=== PATIENT | male | born 1995 ===

== ENCOUNTER 2024-07-09 11:09 | Outpatient (REF) | payer OTHER, SELFPAY ==
--- OUTSIDE RECORDS SUMMARY | 2024-07-09 11:11 | XMS_ITS | Patient Health Record ---
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 Name Role Phone Humberto Mcgarry Primary Care Provider [phone] Jessica Unavailable [phone] Humberto Mcgarry DO Unavailable Unavailable Reason For Referral No Information Medications Medication SIG (Take, Route, Frequency, Duration) Notes Start Date End Date Status ZyrTEC 5 mg 1 tab(s) chewed once a day Active Multivitamin 1 tablet Orally Once a day Active Immunizations Vaccine Route Administration Date Status Comme nts Declined Flu Shot Unknown 07/23/2019 [place] [address] FFS Unknown 02/13/1996 [place] [address] FFS Unknown 04/20/1996 [place] [address] FFS Unknown 07/06/1996 [place] [address] FFS Unknown 06/14/1997 [place] [address] FFS Unknown 01/31/2000 Administered Hepatitis B Adult I Unknown 1995 Administered Hepatitis B Adult I Unknown 01/11/1996 Administered Hepatitis B Adult I Unknown 10/05/1996 Administered HIB 48258 Unknown 02/13/1996 Administered HIB 45753 Unknown 07/06/1996 Administered HIB 32530 Unknown 03/15/1997 Administered Menactral(MCV4) Unknown 01/20/2007 Administered Meningococcal Conjugate 50194 IM Intramuscular 09/10/2014 Administered MMR Unknown 03/15/1997 Administered MMR Unknown 01/31/2000 Administered Polio IPV SC Inactivated Unknown 02/13/1996 Administere d Polio IPV SC Inactivated Unknown 04/20/1996 Administere d Polio IPV SC Inactivated Unknown 07/06/1996 Administere d Polio IPV SC Inactivated Unknown 06/14/1997 Administere d Polio IPV SC Inactivated Unknown 03/24/2000 Administere d Tdap Unknown 01/20/2006 Administered Tdap IM Intramuscular 08/29/2012 Administered (MV) Varicella Unknown 03/24/2000 Administered Varicella Unknown 01/20/2007 Administered Social History Alcohol Screen Question Answer Notes Did you have a drink contain ing alcohol in the past year? Yes How often did you have a dri nk containing alcohol in the past year? 2 to 4 times a month (2 points) How many drinks did you have on a typical day when you were drinking in the past year? 1 or 2 drinks (0 point) How often did you have 6 or more drinks on one occasion in the past year? Never (0 point) Points 2 Interpretation Negative Tobacco use other than smoking: Question Answer Notes Are you an other tobacco user? No Problems Problem Type SNOMED Code ICD Code Onset Dates Problem Status W/U Status Risk Notes Problem Enuresis (5096647) Enuresis (307.6) Active confirmed (MV) Problem 66630915 Constipation (K59.00) Active confirmed Plan Of Treatment Pending Test Test Name Order Date CMP/HEPATIC([facility]) 07/23/2019 LDL (Direct)([facility]) 07/23/2019 TSH([facility]) 07/23/2019 CBC with Differential (AUTO) 07/23/2019 Insurance Providers Payer Name Payer Address Payer Phone Subscriber Number Group Number Insured Name Patient Relationship to Insured Coverage Start Date Coverage End Date [employer] [place] [address] [place] [address] [phone] [id number] ROSANNA ROBLES Child - Insured does not have Financial Responsibility (includes legally adopted child) 3 Medical (General) History Medical History History ICD Code Seasonal Allergies Surgical History Surgery Date(Month/Year) Tonillectomy & Adnoidectomy 1999
--- OUTSIDE RECORDS SUMMARY | 2024-07-09 11:11 | XMS_ITS | Data Portability ---
Author Organization [facility] Address [address] [place] [address] Care Team Providers Care Tobacco Drummer Name Role Phone ALVAREZ CALDERON Primary Care Provider [phone] ALVAREZ CALDERON Referring Provider JUAN C PORTILLO Orthopedic Surgeon Assessment Encounter Date Assessment Date Assessment LastModified by Organization Details LastModified Time 06/06/2017 06/06/2017 Xrays personally reviewed today taken @ [facility]: Left Knee Normal Recommendatio ns: Anterior knee pain. Continue activity as tolerated. Recommend stretching and core and quadriceps strengthening . If worsening possible referral to physical therapy Follow Up Visit: PRN [email or web address] Not available 06/06/2017 11:00:10 Plan of Treatment Reminders Order Date Submit Date Provider Last Modified By Organization Details Last Modified Time Details Appointments None recorded . Lab CMP, serum or plasma 021 07/23/19 21 [email or web address] Not available 2 06:44:43 CBC w/ auto diff 021 07/23/19 21 [email or web address] Not available 2 06:44:43 TSH, serum or plasma 021 07/23/19 21 [email or web address] Not available 2 06:44:44 lipid panel, serum 021 07/23/19 21 [email or web address] Not available 2 06:44:44 CBC w/ auto diff 022 07/27/19 22 JOSH Not available 2 11:25:05 TSH, serum or plasma 022 07/27/19 JOSH Not available 12:31:55 CMP, serum or plasma 022 07/27/19 JOSH Not available 12:37:08 lipid panel, serum 022 07/27/19 22 JOSH Not available 12:38:36 Referral None recorded . Procedures None recorded . Surgeries None recorded . Imaging XR, knee, 3 view - 3 V WB 017 06/06/20 17 JOSH Not available 7 16:23:17 Medication Orders None recorded . Patient TargetsNo targets recorded. Patient Instructions Encounter Date Encounter Id Patient Instructions Last Modified By Organization Details Last Modified Time 07/23/2020 [id number] seasonal allergies: care instructions Not available 07/23/2020 12:28:27 07/27/2021 [id number] seasonal allergies: care instructions Not available 07/27/2021 09:17:29 Reason for Referral None Reported. Results Created Date Observation Date Name Description Value Unit Range Abnormal Flag Note LastModifiedBy Organization Detail LastModifiedTime 07/27/19 22 07/27/2021 CBCD WBC 8.0 10^3_ cells /uL 4.8-11 .2 Not Available [facility] [address], [place], [address], 07/27/2021 11:25:05 07/27/19 22 07/27/2021 CBCD RBC 5.1 10^6_ cells /uL 4.0-5. 9 Not Available [facility] [address], [place], [address], 07/27/2021 11:25:05 07/27/19 22 07/27/2021 CBCD HGB 16.2 g/dL 14.0-1 7.2 Not Available [facility] [address], [place], [address], 07/27/2021 11:25:05 07/27/19 22 07/27/2021 CBCD HCT 46.9 % 40.0-5 2.0 Not Available [facility] [address] [facility], [place], [address], 07/27/2021 11:25:05 07/27/19 22 07/27/2021 CBCD MCV 92.0 fL 82.0-9 8.0 Not Available [facility] [address] [facility], [place], [address], 07/27/2021 11:25:05 07/27/19 22 07/27/2021 CBCD MCH 31.8 pg 27.0-3 5.0 Not Available [facility] [address] [facility], [place], [address], 07/27/2021 11:25:05 07/27/19 22 07/27/2021 CBCD MCHC 34.5 % 32.0-3 7.0 Not Available [facility] [address] [facility], [place], [address], 07/27/2021 11:25:05 07/27/19 22 07/27/2021 CBCD RDW-CV 11.0 % 9.0-17 .9 Not Available [facility] [address] [place] [address], [place], [address], 07/27/2021 11:25:07/27/19 22 07/27/2021 CBCD MPV 9.70 fL 7.00-1 4.00 Not Available [facility] [address] [facility], [place], [address], 07/27/2021 11:25:05 07/27/19 22 07/27/2021 CBCD plt 257 10^3_ cells /uL 150-40 0 Not Available [facility] [address] [facility], [place], [address], 07/27/2021 11:25:05 07/27/19 22 07/27/2021 CBCD ne% 48.1 % 40.0-8 5.0 Not Available [facility] [address] , [place], [address], 07/27/2021 11:25:05 07/27/19 22 07/27/2021 CBCD ly% 31.6 % 15.0-4 5.0 Not Available [facility] [address] [facility], [place], [address], 07/27/2021 11:25:05 07/27/19 22 07/27/2021 CBCD MO% 11.0 % 0.0-12 .0 Not Available [facility] [address] [facility], [place], [address], 07/27/2021 11:25:05 07/27/19 22 07/27/2021 CBCD eo% 7.4 % 0.0-7. 0 high Not Available [facility] [address] [facility], [place], [address], 07/27/2021 11:25:05 07/27/19 22 07/27/2021 CBCD ba% 0.9 % 0.0-3. 0 Not Available [facility] [address] [facility], [place], [address], 07/27/2021 11:25:05 07/27/19 22 07/27/2021 CBCD Ig% 1.0 % 0.0-0. 5 high Not Available [facility] [address] [facility], [place], [address], 07/27/2021 11:25:05 07/27/19 22 07/27/2021 CBCD ne# 3.8 10^3_ cells /uL 1.2-8. 5 Not Available [facility] [address] , [place], [address], 07/27/2021 11:25:05 07/27/19 22 07/27/2021 CBCD ly# 2.5 10^3_ cells /uL 1.0-4. 5 Not Available [facility] [address] , [place], [address], 07/27/2021 11:25:05 07/27/19 22 07/27/2021 CBCD MO# 0.9 10^3_ cells /uL 0.0-1. 0 Not Available [facility] [address] , [place], [address], 07/27/2021 11:25:05 07/27/19 22 07/27/2021 CBCD eo# 0.6 10^3_ cells /uL 0.0-0. 5 high Not Available [facility] [address] , [place], [address], 07/27/2021 11:25:05 07/27/19 22 07/27/2021 CBCD ba# 0.1 10^3_ cells /uL 0.0-0. 2 Not Available [facility] [address] , [place], [address], 07/27/2021 11:25:05 07/27/19 22 07/27/2021 CBCD Ig# 0.1 10^3_ cells /uL Not Available [facility] [address] , [place], [address], 07/27/2021 11:25:05 07/27/19 22 07/27/2021 TSH TSH 1.99 mIU/L 0.45-5 .33 Not Available [facility] [address] [facility], [place], [address], 07/27/2021 12:31:55 07/27/19 22 07/27/2021 CMP gluc. 83 mg/dL 74-118 Not Available [facility] [address] , [place], [address], 07/27/2021 12:37:08 07/27/19 22 07/27/2021 CMP BUN. 10 mg/dL 6-25 Not Available [facility] [address] [facility], [place], [address], 07/27/2021 12:37:08 07/27/19 22 07/27/2021 CMP crea. 0.73 mg/dL 0.60-1 .30 Not Available [facility] [address] [facility], [place], [address], 07/27/2021 12:37:08 07/27/19 22 07/27/2021 CMP B/C ratio. 14 ratio 7-25 Not Avail able [facility] [address] [facility], [place], [address], 07/27/2021 12:37:08 07/27/19 22 07/27/2021 CMP Na. 140 mmol/ L 135-14 5 Not Available [facility] [address] [facility], [place], [address], 07/27/2021 12:37:08 07/27/19 22 07/27/2021 CMP K. 4.4 mmol/ L 3.5-5. 1 Not Available [facility] [address] [facility], [place], [address], 07/27/2021 12:37:08 07/27/19 22 07/27/2021 CMP cL 104.00 mmol/ L 98.00- 110.00 Not Available [facility] [address] [facility], [place], [address], 07/27/2021 12:37:08 07/27/19 22 07/27/2021 CMP CO2. 31 mmol/ L 22-32 Not Available [facility] [address] , [place], [address], 07/27/2021 12:37:08 07/27/19 22 07/27/2021 CMP anion gap 5 mmol/ L 3-12 Not Available [facility] [address] , [place], [address], 07/27/2021 12:37:08 07/27/19 22 07/27/2021 CMP Ca. 9.6 mg/dL 8.6-10 .3 Not Available [facility] [address] , [place], [address], 07/27/2021 12:37:08 07/27/19 22 07/27/2021 CMP TP. 6.9 g/dL 6.4-8. 9 Not Available [facility] [address] , [place], [address], 07/27/2021 12:37:08 07/27/19 22 07/27/2021 CMP alb. 4.9 g/dL 3.5-5. 7 Not Available [facility] [address] , [place], [address], 07/27/2021 12:37:08 07/27/19 22 07/27/2021 CMP A/G ratio. 2.4 ratio 1.1-1. 8 high Not Available [facility] [address] , [place], [address], 07/27/2021 12:37:08 07/27/19 22 07/27/2021 CMP ALP. 78 IU/L 34-104 Not Available [facility] [address] , [place], [address], 07/27/2021 12:37:08 07/27/19 22 07/27/2021 CMP ALT. 23 IU/L 7-52 Not Available [facility] [address] [facility], [place], [address], 07/27/2021 12:37:08 07/27/19 22 07/27/2021 CMP AST. 17 IU/L 13-39 Not Available [facility] [address] [facility], [place], [address], 07/27/2021 12:37:08 07/27/19 22 07/27/2021 CMP tbil. 0.3 mg/dL 0.2-1. 2 Not Available [facility] [address] [facility], [place], [address], 07/27/2021 12:37:08 07/27/19 22 07/27/2021 CMP eGFR >60 mL/mi n/1.7 3_m^2 >60 mL/min /1.73 M^2 IF PATIE NT IS AFRIC AN-AM EDNA N, MULTI PLY eGFR REPOR NELL RESUL T by 1.21 Not Available [facility] [address] [facility] [place], [address], 07/27/2021 12:37:08 07/27/19 22 07/27/2021 LIPID W/ REFLE X TO DIREC T LDL chol 150 mg/dL <200 Not Available [facility] [address] [facility], [place], [address], 07/27/2021 12:38:36 07/27/19 22 07/27/2021 LIPID W/ REFLE X TO DIREC T LDL trig. 55 mg/dL <150 Not Available [facility] [address] [facility], [place], [address], 07/27/2021 12:38:36 07/27/19 22 07/27/2021 LIPID W/ REFLE X TO DIREC T LDL DHDL 53 mg/dL >40 Not Available [facility] [address] [facility], [place], [address], 07/27/2021 12:38:36 07/27/19 22 07/27/2021 LIPID W/ REFLE X TO DIREC T LDL LDL chol 86 mg/dL (calc .) <100 Not Available [facility] [address] [facility], [place], [address], 07/27/2021 12:38:36 07/27/19 22 07/27/2021 LIPID W/ REFLE X TO DIREC T LDL chol/ HDL ratio 2.8 ratio 0.0-5. 0 Not Available [facility] [address] [place] [address], [place], [address], 07/27/2021 12:38:36 06/06/20 17 06/06/2017 XR, knee, 3 view Page 1 of 1 [facility] [address] [address] DO Beverly Cowan t Name: BERNADETTE SEAMAN AVTAR [facility] : [address] [place] [address] Chart No: [id number] Gender : Male Access ion #: [id number] Study Date: Primar y CPT Code: Study Descri ption: 84389 XR KNEE LT 3V Indica tion: Left knee pain. Three views of the left knee reveal no signs of degene rative findin gs. Normal alignm ent is mainta ined. No signs of acute osseou s pathol ogy are presen t. Impres carole: Normal exam left knee. 2016 10:53 AM EK/ CC: Electr onical ly approv ed by: Juan C Portillo [email or web address] Not Available 2016 16:23:17 Result Notes None recorded. Problems Name Problem SNOMED Code Status Onset Date Resolution Date Notes Provider Name and Address Organization Details Recorded Time Nocturnal enuresis 5351552 Completed 379907/23/2020 ALVAREZ CALDERON, [address], [address], [facility] 1 12:16:17 Adult health examination Completed 202007/23/2020 ALVAREZ CALDERON [address] [place], [address], [facility] 1 12:28:34 Seasonal allergic rhinitis 512844364 Active 2020 ALVAREZ CALDERON, [address], [address], [facility] 1 12:28:24 Problem Notes None recorded. Procedures Surgical History Date Name Laterality Status Provider Name and Address Organization Details Recorded Time 0 wisdom teeth extraction completed Marychuy Renteria [facility] 07/23/2020 11:40:40 Imaging Results Imaging Date Name Status LastModified by Organiz ation Details LastModified Time 06/06/2017 XR, knee, 3 view completed [email or web address] Information not available 06/07/2017 16:23:17 Procedure Notes None recorded. Medical Equipment None Reported. Allergies No known drug allergies Medications Name Sig Start Date Stop Date Status Note LastModified by Organization Details LastModified Time Zyrtec 10 mg tablet Take 1 tablet every day by oral route. active Not Available Not Available No t Available Zyrtec DOSAGE:10 DOSEROUTE :PO REFILLS: DIRECTION :TAKE:1 06/06 completed Not Available Not Available Not Available multivitami n 1 tab daily active Not Available Not Available No t Available Zyrtec 10 mg capsule Take 1 mg every day by oral route. 06/10 completed Not Available Not Available Not Available Probiotic OTC 06/10 completed Not Available Not Available Not Available Flonase Allergy Relief 50 mcg/actuati on nasal spray,suspe nsion [place] 1 spray every day by intranasa l route as needed. active Not Available Not Available No t Available Vitals Date Recorded Body height Body mass index (BMI) Body weight Provider Name and Address Organization Details Last Updated DateTime 06/06/2017 177.8 cm 21.2 kg/m2 34322.67 g Issac Sofia [facility] 06/06/2017 10:17:40 Date Recorded Body height Body mass index (BMI) Body weight Oxygen saturation Oxygen saturation in Arterial blood by Pulse oximetry Heart rate Systolic blood pressure Diastolic blood pressure Provider Name and Address Organization Details Last Updated DateTime 1 177.8 cm 23.1 kg/m2 45765.3 7 g 98 % 98 % 93 /min 112 mm[Hg] 74 mm[Hg] Marychuy Muelleranda [facility] 1 11:42:14 Date Recorded Body height Body mass index (BMI) Body weight Oxygen saturation Oxygen saturation in Arterial blood by Pulse oximetry Heart rate Systolic blood pressure Diastolic blood pressure Provider Name and Address Organization Details Last Updated DateTime 2 177.8 cm 25 kg/m2 70134.0 7 g 99 % 99 % 88 /min 120 mm[Hg] 70 mm[Hg] Marlin Donald [facility] 2 09:01:58 Social History Question Answer Notes LastModified by Hosted Systemsizat ion Details LastModified Time Tobacco Smoking Status [facility] 10:19:09 What Is Your Level Of Alcohol Consumption? Occasional Information not available 06/06/2017 Are You Blind Or Do You Have Difficulty Seeing? Yes Contacts Information not available 07/27/2021 What Is Your Level Of Caffeine Consumption? Moderate 1 Cup Daily Information not available 07/23/2020 What Type Of Enamel Shader Do You Use? None Information not available 07/27/2021 Are You Currently Employed? Yes Information not available 07/27/2021 Are You Deaf Or Do You Have Serious Difficulty Hearing? No Information not available 07/27/2021 What Type Of Diet Are You Following? REGULAR Information not available 07/27/2021 Which Illicit Or Recreational Drugs Have You Used? None Information not available 06/06/2017 What Is The Highest Grade Or Level Of School You Have Completed Or The Highest Degree You Have Received? CA54465-5 Information not available 07/27/2021 What Is Your Occupation? Student Information not available 07/23/2020 Have You Been Exposed To Chemicals Or Toxins? No Information not available 07/27/2021 Are There Any Guns Present In Your Home? No Information not available 07/27/2021 Do You Use Insect Repellent Routinely? Yes Information not available 07/27/2021 Live Alone Or With Others? With Others Information not available 06/06/2017 Marital Status Single Informatio n not available 06/06/2017 What Was The Date Of Your Most Recent Tobacco Screening? 06/06/2017 Information not available 02/07/2019 How Many Children Do You Have? 0 Information not available 07/27/2021 Have You Ever Been Counseled For Unhealthy Alcohol Use? No Information not available 07/27/2021 Do You Have Any Pets? Yes Information not available 07/27/2021 What Is Your Relationship Status? Single Information not available 07/27/2021 Do You Use Your Seat Belt Or Car Seat Routinely? Yes Information not available 07/27/2021 Do You Have Smoke And Carbon Monoxide Detectors In Your Home? Yes Information not available 07/27/2021 Are You Passively Exposed To Smoke? No Information not available 07/27/2021 What Types Of Sporting Activities Do You Participate In? Weights/bikin g Information not available 07/27/2021 Do You Feel Stressed (tense, Restless, Nervous, Or Anxious, Or Unable To Sleep At Night)? KB2810-6 Information not available 07/27/2021 Do You Use Any Illicit Or Recreational Drugs? No Information not available 07/27/2021 Do You Use Sunscreen Routinely? Yes Information not available 07/27/2021 Are You Currently In School? Yes Information not available 07/27/2021 Sex: Unknown Functional Status Question Answer Note LastModified by Organizat ion Details LastModified Time Do you have difficulty walking or climbing stairs? No Information not available 07/27/2021 Do you have transportation difficulties? No Information not available 07/27/2021 Do you have difficulty doing errands alone? No Information not available 07/27/2021 Are you able to care for yourself? Yes Information not available 07/27/2021 Do you have difficulty dressing or bathing? No Information not available 07/27/2021 What is your exercise level? Moderate Information not available 07/27/2021 Mental Status Question Answer Note LastModified by Organization D etails LastModified Time Do you have difficulty concentrating, remembering or making decisions? No Information no t available 07/27/2021 Family History Relationship Description Onset Age of this Age Resolved Age Notes LastModified by Organization Details LastModified Time Paternal Grandfather Heart disease [email or web address] Not available 2016 10:18:48 Mother Hypothyroidi sm [email or web address] Not available 2019 15:33:58 Father Malignant tumor of thyroid gland [email or web address] Not available 2019 15:34:17 Father Migraine [email or web address] Not available 06/10/2020 15:34:27 Sister Hypothyroidi sm [email or web address] Not available 2019 15:34:38 Medical History Condition Response hypothyroidism N HIV or AIDS N gout N ADD - Attention Deficit Disorder N panic attacks N other lung disease N hyperthyroidism N asthma N glaucoma N cataracts N ulcers N ADHD - Attention Deficit Hyperactivity D isorder N COPD N claustrophobic N RSV - Respiratory Syncytial Virus N aortic aneurysm N bleeding disorder N breast cancer N diabetes N seizure disorder N kidney stones N heart condition N peripheral vascular disease N hiatal hernia N ODD - Oppositional Defiant Disorder N diverticulitis N other N anemia N bowel problems N anxiety disorder N hypercholesterolemia N ulcerative colitis N headache N has pacemaker N back pain N cancer N defects or inherited diseases N arthritis N tuberculosis N no past medical history reported N depression N osteoporosis N kidney disease N CAD N blood clots N atrial fibrillation N liver disease N GERD/reflux N colon cancer N GI problems N CVA N skin cancer N osteoarthritis N hypertension N urinary tract infection N hepatitis N lung cancer N pulmonary embolism N stroke N Immunizations Vaccine Type Date Status Note Provider Nam e and Address Organization Details Recorded Time Tdap completed Marlin ag [place] [facility] 07/27/2021 09:06:41 COVID-19, mRNA, LNP-S, PF, 30 mcg/0.3 mL dose 1 completed Marlin ag, [facility] 07/27/2021 08:56:45 COVID-19, mRNA, LNP-S, PF, 30 mcg/0.3 mL dose 1 completed Marlinchang Donald kimberli [facility] 07/27/2021 08:57:24 COVID-19, mRNA, LNP-S, PF, 30 mcg/0.3 mL dose 1 completed Marlin Harringtons kimberli, [facility] 07/27/2021 08:58:11 influenza, unspecified formulation 1 completed Not Available [facility] 09/04/2013 17:08:54 Past Encounters Encounter ID Performer Location Encounter Start Date Encounter Closed Date Diagnosis/Indication Diagnosis SNOMED-CT Code Diagnosis ICD10 Code [id number] [facility] [address] [address] 06/03/2011 00:00:00 [id number] [facility] [address] [address] 04/28/2010 00:00:00 [id number] Juan C Portillo DO [place] [address] [facility] [address] [place] [address] 06/06/2017 10:05:28 06/06/2017 11:06:13 Knee pain 38218393 M25.562 Strain of knee 761122632 1 03 S86.912A [id number] ALVAREZ CALDERON DO [address] [place] [address] 07/23/2020 11:29:57 07/23/2020 12:31:32 Adult health examination 602517633 Z00.00 Seasonal a llergic rhinitis 420036032 J30.2 [id number] ALVAREZ CALDERON DO [address] [place] [address] 07/27/2021 08:48:37 07/27/2021 09:29:49 Adult health examination 347651972 Z00.00 Administra tion of diphtheria, pertussis, and tetanus vaccine 754113462 Z23 Seasonal a llergic rhinitis 029428030 J30.2 Health Concerns Section Related Observation LastModified by Organization Detai ls LastModified Time None Recorded Concern Status LastModified by Organization Details LastModified Time None Recorded Advance Directives Directive None Recorded Payers Encounter Date Sequence Insurance Name Policy Number Policy Weathers Covered Member ID Weathers Member ID Guarantor Name 06/06/2017 1 [place] [id number] Zee Robb [id number] Zee Robb 07/23/2020 1 [facility] [id number] Avtar Robb [id number] Zee Robb 07/27/2021 1 [facility] [id number] Avtar Robb [id number] Zee Robb Notes Date Note Type Note Provider Name and Address Organization Details Recorded Time 06/06/2017 text/html [facility] KneeReported bypatient.Location :left Quality:aching; frequent; improving Severity:mild (to moderate) Duration:continuou s since onset (April) Timing:gradual Context:overuse (Hiking [facility]) Improved By:rest; Ibuprofen (600 mg); brace with minimal relief Not Improved By:sitting (prolong); walking Aggravating Factors:sitting (prolong); walking; bending/squatting; ROM; weightbearing; downstairs; pressure on the knee, bending the knee Associated Symptoms:no swelling; no redness; no warmth; no ecchymosis; no catching/locking; no buckling; no grinding; no instability;weakne ss(mild);popping/c licking;radiation down leg(mid calf) Previous Surgery:none Prior Imaging:no recent studies Previous Injections:none Previous PT:none Previous physician directed exercise program:none Work Related:no Working:Student Juan C Portillo, DO [address] [place], [address], [facility] 06/08/2017 13:00:05 07/23/2020 text/html previous doc was dr pittman seen 1-2 years before. 1. Allergies. use Zyrtec,status: stable ALVAREZ CALDERON, DO [address] [place], [address], 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 ALVAREZ CALDERON DO [address] [place], [address], [facility] 07/28/2021 08:11:04
[2024-07-09 16:50] LABS: ALT 62 U/L (16-63); AST 24 U/L (15-37); Albumin 4.2 g/dL (3.4-5.0); Alkaline Phosphatase 93 U/L (46-116); Anion Gap 7.6 mmol/L (3-11); BUN 11 mg/dL (7-18); Bilirubin, Total 0.29 mg/dL (0.2-1.0); CO2 31.4 mmol/L (21.0-32.0); CREATININE 0.8 mg/dL (0.70-1.30); Calcium 9.6 mg/dL (8.5-10.1); Calculated LDL 74 mg/dL (<100); Chloride 105 mmol/L (98-107); Cholesterol 158 mg/dL (<200); Estimated GFR 123.63 (mL/min/1.73m2); Glucose 90 mg/dL (74-106); HDL Cholesterol 42 mg/dL (40-60); Potassium 4.8 mmol/L (3.5-5.1); Sodium 144 mmol/L (136-145); TSH (W/Ref FT4) 1.61 uIU/mL (0.36-3.74); Total Protein 7.3 g/dL (6.4-8.2); Triglyceride 210 mg/dL (<150)
== END 2024-07-09 11:10 | disposition home or self-care (01) ==
LOC: NCHCN 11:09
PROVIDERS: PCP Student in an Organized Health Care Education/Training Program; Visit Provider Student in an Organized Health Care Education/Training Program
DX: Z13.228 Encounter for screening for other metabolic disorders (principal); Z13.220 Encounter for screening for lipoid disorders
CPT/HCPCS: 80053; 80061; 84443

== ENCOUNTER 2024-11-01 09:05 | Outpatient (REF) | payer OTHER, SELFPAY ==
[2024-11-01 14:50] LABS: TSH 1.84 uIU/mL (0.36-3.74); Vitamin B12 483 pg/mL (193-986)
[2024-11-01 14:51] LABS: Folate > 20.0 ng/mL (8.6-20.0)
[2024-11-01 16:10] LABS: FREE T4 0.97 ng/dL (0.76-1.46)
[2024-11-02 10:55] LABS: Lyme Ab w Rflx to Lyme Confirm Negative (Negative)
== END 2024-11-01 09:06 | disposition home or self-care (01) ==
LOC: NCHCN 09:05
PROVIDERS: PCP Student in an Organized Health Care Education/Training Program; Visit Provider Student in an Organized Health Care Education/Training Program
DX: R20.2 Paresthesia of skin (principal)
CPT/HCPCS: 82607; 82746; 84439; 84443; 86618

== ENCOUNTER 2024-11-08 16:29 | Outpatient (REF) | payer OTHER, SELFPAY ==
[2024-11-08 15:24] LABS: ESR 2 mm/hr (0-15)
[2024-11-08 15:37] LABS: C-Reactive Protein < 0.50 mg/dL (<or=0.5)
[2024-11-08 21:54] LABS: Rheumatoid Factor <8.6 IU/mL (<12.0)
[2024-11-09 09:00] LABS: Cyclic Citrullinated Peptide <2.5 U/mL (<5.0)
[2024-11-09 14:09] LABS: ANA Interpretation Negative (Negative)
== END 2024-11-08 16:30 | disposition home or self-care (01) ==
LOC: NCHCN 16:29
PROVIDERS: PCP Student in an Organized Health Care Education/Training Program; Visit Provider Student in an Organized Health Care Education/Training Program
DX: M25.59 Pain in other specified joint (principal)
CPT/HCPCS: 85652; 86200; 86038; 86140; 86431

== ENCOUNTER 2024-11-13 00:03 | Outpatient (CLI) | payer OTHER, SELFPAY ==
--- NOTE | 2024-11-13 08:26 | DI.RAD_ITS ---
Exam(s) XR CERVICAL SPINE COMP 4-5V EXAM: XR CERVICAL SPINE COMP 4-5V CLINICAL HISTORY: R20.2 Paresthesia of skin, upper limb. TECHNIQUE: 2D digital imaging was performed. Five images were obtained. AP, odontoid, lateral and bi lateral oblique images were obtained. COMPARISON: No exams were available for comparison FINDINGS: The odontoid is intact. The lateral masses are well aligned. There is straightening of the normal ce rvical lordosis. This may be due to muscle spasm or patient positioning. The vertebral bodies, disc spaces and posterior elements are well maintained. No acute fracture or subluxation is present. No significant neural foraminal stenosis is present. The cervical thoracic junction is well maintained. The prevertebral soft tissues are unremarkable. Lung apices are clear. IMPRESSION: 1. Unremarkable radiographs of the cervical spine. 2. If there are radicular concerns, an MRI of the cervical spine should be considered for further mahsa luation. DATA REPOSITORY: RADIATION DOSE DELIVERED:
--- NOTE | 2024-11-13 08:27 | DI.RAD_ITS ---
Exam(s) XR LUMBAR SPINE COMPLETE EXAM: XR LUMBAR SPINE COMPLETE CLINICAL HISTORY: R20.2 Paresthesia of skin,lower extremity; HX back pain episodes over few. TECHNIQUE: 2D digital imaging was performed of the lumbar spine. Five images were obtained. AP, la teral, right oblique, left oblique and L5-S1 spot views were obtained. COMPARISON: No exams were available for comparison FINDINGS: BONES: No fracture or destructive lesion. Vertebral bodies are unremarkable. No facet hypertrophy vicki ntified. DISKS: Intervertebral disc spaces are maintained. ALIGNMENT: Lumbar spinal alignment is within normal limits. No spondylolysis or spondylolisthesis. SOFT TISSUE: Normal. IMPRESSION: Unremarkable radiographs of the lumbar spine. DATA REPOSITORY: RADIATION DOSE DELIVERED:
== END 2024-11-13 00:23 ==
LOC: DI 00:03
PROVIDERS: PCP Student in an Organized Health Care Education/Training Program; Visit Provider Student in an Organized Health Care Education/Training Program
DX: R20.2 Paresthesia of skin
CPT/HCPCS: 72050; 72110

== ENCOUNTER 2024-11-20 02:01 | Outpatient (CLI) | payer OTHER, SELFPAY ==
[2024-11-20 12:57] LABS: Abs Immature Grans 0.05 10^3/uL (0.0-0.06); Absolute Basophil Count 0.06 10^3/uL (0.0-0.2); Absolute Eosinophil Count 0.27 10^3/uL (0.0-0.7); Absolute Lymphocyte Count 1.22 10^3/uL (1.2-3.4); Absolute Monocyte Count 1.35 10^3/uL (0.1-0.8); Absolute Neutrophil Count 4.67 10^3/uL (1.2-6.7); Basophils % 0.8 %; Eosinophils % 3.5 %; HCT 47.3 % (40.0-50.0); HGB 16.4 g/dL (13.5-17.5); Immature Grans % 0.7 %; MCH 31.3 pg (27.0-33.0); MCHC 34.7 % (32.0-36.0); MCV 90 fL (80-95); MPV 9.1 fL (8.0-11.0); Monocytes % 17.7 %; Neutrophils % 61.3 %; Platelet Count 247 10^3/uL (130-400); RBC 5.24 10^6/uL (4.36-5.78); RDW-SD 36.5 fL; WBC 7.62 10^3/uL (4.4-10.8)
[2024-11-20 13:32] LABS: Anion Gap 7.8 mmol/L (3-11); BUN 14 mg/dL (7-18); CO2 30.2 mmol/L (21.0-32.0); CREATININE 0.8 mg/dL (0.70-1.30); Calcium 9.5 mg/dL (8.5-10.1); Chloride 104 mmol/L (98-107); Estimated GFR 123.63 (mL/min/1.73m2); Glucose 81 mg/dL (74-106); Sodium 142 mmol/L (136-145)
== END 2024-11-20 02:02 | disposition home or self-care (01) ==
LOC: LBO 02:01
PROVIDERS: PCP Student in an Organized Health Care Education/Training Program; Visit Provider Student in an Organized Health Care Education/Training Program
DX: R20.2 Paresthesia of skin (principal)
CPT/HCPCS: 36415; 80048; 85025

== ENCOUNTER 2024-12-14 00:29 | Outpatient (CLI) | payer OTHER, SELFPAY ==
--- NOTE | 2024-12-14 | DI.MRI_ITS ---
Exam(s) MR BRAIN WO/W EXAM: MR BRAIN WO/W CLINICAL HISTORY: R20.2 Paresthesis of skin TECHNIQUE: Multiplanar multisequence MRI of the brain was performed. Both noninfused and contrast i nfused sequences were performed. IV Contrast injected was 18 cc Dotarem. COMPARISON: No exams were available for comparison FINDINGS: CEREBRAL PARENCHYMA: No evidence of intracranial hemorrhage, mass effect nor shift of midline structu re. No extraaxial fluid collections. Ventricles are not enlarged nor shifted. No evidence of cerebellar tonsillar ectopia. There is no significant focal signal abnormality in the cerebellar hemispheres nor within the prakash, m idbrain, and thalami. There is no abnormal signal abnormality in the periventricular white matter. There is no evidence of demyelinating disease in the brain. DWI: No areas of restricted diffusion to suggest acute ischemic event. SWI: No microhemorrhages evident. There are no ring enhancing lesions in the brain. There is no abnormal meningeal enhancement. PITUITARY GLAND: No mass nor parasellar abnormality. No obvious abnormality in the cavernous sinuses. FLOW VOIDS: The expected flow void are noted. No evidence of obvious aneurysm nor obvious vascular ma lformation. PARANASAL SINUSES: The visualized paranasal sinuses appear unremarkable. ORBITS: No obvious abnormal findings. IMPRESSION: 1. No significant intracranial findings on this MRI scan of the brain. 2. No abnormal enhancing intracranial findings. There are no ring enhancing lesions in the brain and there is no abnormal meningeal enhancement. 3. There is no evidence of demyelinating disease in the brain. DATA REPOSITORY:
--- NOTE | 2024-12-14 | DI.MRI_ITS ---
Exam(s) MR CERVICAL SPINE WO/W EXAM: MR CERVICAL SPINE WO/W CLINICAL HISTORY: R20.2 Paresthesis of skin TECHNIQUE: Multiplanar multisequence MRI of the cervical spine was performed both pre and post contr ast infused sequences. Contrast injected was intravenous 18 mL Dotarem COMPARISON: CR XR CERVICAL SPINE COMP 4-5V from 11/13/2024 FINDINGS: CERVICOMEDULLARY JUNCTION: Intact with no evidence of cerebellar tonsillar ectopia. No obvious abnor mality of the odontoid process. No evidence of Chiari 1 malformation. CERVICAL SPINAL CORD: There is no abnormal signal in the cervical spinal cord and no evidence of foca l cord atrophy nor focal cord swelling. There is no evidence of syringomyelia. No abnormal cervical spine cord enhancement. OSSEOUS:There are no cervical fractures evident. No significant osseous lesions in the cervical vert ebrae. No abnormal marrow enhancement. INDIVIDUAL DISC SPACE LEVELS: All of the disc spaces exhibit normal height and signal. There is no evidence of disc herniation nor spinal canal stenosis. There is no significant facet arthropathy. There is no significant foramina l stenosis. No evidence of discitis. No abnormal epidural enhancement IMPRESSION: 1. No significant findings on this MRI scan of the cervical spine. 2. No evidence of disc herniation, spinal canal stenosis, nor foraminal stenosis. All of the disc sp aces appear unremarkable. 3. No abnormality in the cervical spinal cord. No abnormal signal nor enhancement in the cord. No e vidence of demyelinating disease. No focal cord swelling nor atrophy of the cord. No evidence of sy ringomyelia. No evidence of Chiari 1 malformation. 4. No areas of abnormal enhancement in the cervical spine. DATA REPOSITORY:
[2024-12-14] MEDS: Gadoterate meglumine 20 ML SYRINGE 18 ML IVP (08:56)
[2024-12-14] MEDS: Normal Saline Flush 10 ML SYR IVP (08:57)
== END 2024-12-14 00:49 ==
LOC: DI 00:29
PROVIDERS: PCP Student in an Organized Health Care Education/Training Program; Visit Provider Student in an Organized Health Care Education/Training Program
DX: R20.2 Paresthesia of skin (principal)
CPT/HCPCS: 70553; 72156

== ENCOUNTER 2025-01-16 07:37 | Outpatient (CLI) | payer OTHER, SELFPAY ==
[2025-01-16 11:54] LABS: ALT 49 U/L (16-63); AST 15 U/L (15-37); Albumin 4.3 g/dL (3.4-5.0); Alkaline Phosphatase 90 U/L (46-116); Anion Gap 7.3 mmol/L (3-11); BUN 13 mg/dL (7-18); Bilirubin, Total 0.6 mg/dL (0.2-1.0); CO2 29.7 mmol/L (21.0-32.0); Calcium 9.2 mg/dL (8.5-10.1); Chloride 104 mmol/L (98-107); Estimated GFR 127.91 (mL/min/1.73m2); Glucose 91 mg/dL (74-106); Potassium 4.0 mmol/L (3.5-5.1); Sodium 141 mmol/L (136-145); Total Protein 7.5 g/dL (6.4-8.2)
[2025-01-22 10:55] LABS: ACh Receptor(Muscle)Binding Ab 0.00 nmol/L (<=0.02)
== END 2025-01-16 07:38 | disposition home or self-care (01) ==
LOC: LBO 07:38
PROVIDERS: PCP Student in an Organized Health Care Education/Training Program; Visit Provider Student in an Organized Health Care Education/Training Program
DX: R20.2 Paresthesia of skin (principal)
CPT/HCPCS: 36415; 80053; 83519

== ENCOUNTER 2025-01-31 01:26 | Outpatient (CLI) | payer OTHER, SELFPAY | END 2025-01-31 01:27 | disposition home or self-care (01) | LOC: LBO 01:26 | PROVIDERS: PCP Student in an Organized Health Care Education/Training Program; Visit Provider Student in an Organized Health Care Education/Training Program | DX: R29.898 Other symptoms and signs involving the musculoskeletal system (principal) | CPT/HCPCS: 36415; 83519 ==

== ENCOUNTER 2025-02-27 14:45 | Outpatient (REF) | payer OTHER, SELFPAY ==
[2025-02-27 16:55] LABS: Magnesium 2.2 mg/dL (1.8-2.4)
== END 2025-02-27 14:46 | disposition home or self-care (01) ==
LOC: NCHCN 14:45
PROVIDERS: PCP Student in an Organized Health Care Education/Training Program; Visit Provider Student in an Organized Health Care Education/Training Program
DX: M62.838 Other muscle spasm (principal)
CPT/HCPCS: 83735